=== PATIENT | male | born 1995 | race Two or more races ===

== ENCOUNTER 2020-02-29 17:48 | Outpatient (CLI) | payer OTHER, SELFPAY ==
--- NOTE | ~2020-02-29 | XR_ITS ---
EXAMINATION: XR shoulder LT min 2V INDICATION: Left shoulder pain after fall TECHNIQUE: Four views of the left shoulder are obtained. COMPARISON: None available FINDINGS: There is mild cortical irregularity involving the superolateral aspect of the humerus. No a dditional acute osseous findings are suspected. The visualized portions of the left hemithorax are un remarkable. IMPRESSION: 1. Findings suggestive of nondisplaced greater tuberosity fracture of the left humerus. Reviewed, dictated and finalized at location A.
== END 2020-02-29 17:49 | disposition home or self-care (01) ==
DX: S49.92XA Unspecified injury of left shoulder and upper arm, initial encounter (principal)
CPT/HCPCS: 73030